=== PATIENT | male | born 1975 | race Caucasian/White ===

== ENCOUNTER 2020-11-12 08:16 | Emergency (ER) | payer OTHER, SELFPAY ==
[2020-11-12] VITALS (31 sets, daily range): BP systolic 102–153; BP diastolic 67–98; PULSE 52–86; RESP 8–23; TEMP 36.4; O2SAT 92–100
--- NOTE | ~2020-11-12 | XR_ITS ---
EXAMINATION: XR chest 2V DATE: 11/12/2020 08:52 INDICATION: Chest pain and shortness of breath TECHNIQUE: PA and lateral views of the chest were obtained. COMPARISON: None FINDINGS: The lungs are clear with no focal airspace opacities, pulmonary edema, pleural effusion or pneumothor ax. Cardiomegaly. Mild thoracic spondylosis. IMPRESSION: 1. No acute cardiopulmonary disease. Reviewed, dictated and finalized at location A.
--- NOTE | 2020-11-12 08:18 | ECG_ITS ---
Measurements Intervals [place] Rate: 63 P: 34 NV: 171 QRS: 12 QRSD: 85 T: 1 QT: 382 QTc: 393 Interpretive Statements SINUS RHYTHM INCOMPLETE RIGHT BUNDLE BRANCH BLOCK BORDERLINE ST-T WAVE ABNORMALITY- INFERIOR LEADS BASELINE WANDER- V4-V6 BORDERLINE ECG Electronically Signed On 11-12-2020 8:30:58 CDT by Syd Gutierrez D.O.
[2020-11-12 08:40] LABS: Basophils Absolute Auto 0.1 K/mm3 (0.0-0.1); Basophils Percent Auto 0.9 % (0.2-1.2); Eosinophils Absolute Auto 0.2 K/mm3 (0-0.3); Eosinophils Percent Auto 3.1 % (0-4.4); Hematocrit 44.6 % (42.0-52.0); Hemoglobin 15.5 g/dL (14.0-18.0); Immature Granulocyte Absolute 0.04 K/mm3 (0.00-0.031); Immature Granulocyte Percent A 0.7 % (0-0.5); Lymphocytes Absolute Auto 1.94 K/mm3 (0.9-3.2); Lymphocytes Percent Auto 34.9 % (18.3-44.2); Mean Corpuscular HGB Conc 34.8 g/dl (32-36); Mean Corpuscular Hemoglobin 31.7 pg (26-34); Mean Corpuscular Volume 91.2 fl (80-100); Mean Platelet Volume 9.4 fl (7.4-10.4); Monocytes Absolute Auto 0.5 K/mm3 (0.1-0.6); Monocytes Percent Auto 9.5 % (2.6-8.5); Neutrophils Absolute Auto 2.8 K/mm3 (1.3-6.7); Neutrophils Percent Auto 50.9 % (45.5-73.1); Platelet Count Result 236 k/mm3 (150-375); Red Blood Count 4.89 M/mm3 (4.6-6.20); Red Cell Distribution Width 11.9 % (11.5-14.5); White Blood Count 5.6 K/mm3 (4.5-10.0)
[2020-11-12] MEDS: ASPIRIN 81 MG CHEWABLE TABLET 324 MG PO (08:50)
--- NOTE | 2020-11-12 08:50 | PC.NURSE ---
Pt in xray at this time.
[2020-11-12 08:55] LABS: INR 0.9; Prothrombin Time 12.4 Seconds (11.1-14.7)
[2020-11-12 08:56] LABS: Partial Thromboplastin Time 26.3 SECONDS (22.3-36.8)
[2020-11-12 08:58] LABS: Anion Gap 7 mmol/L (8-16); Blood Urea Nitrogen 16 mg/dL (9-20); Calcium 9.1 mg/dL (8.4-10.2); Carbon Dioxide 24 mmol/L (22-30); Chloride 108 mmol/L (98-107); Estimated Glomerular Filt Rate > 60; Glucose 109 mg/dL (75-110); Sodium 139 mmol/L (137-145)
[2020-11-12 09:27] LABS: Troponin I < 0.012 ng/mL (0.000-0.034)
--- NOTE | 2020-11-12 09:40 | PC.NURSE ---
JUAN PABLO pinzon at bedside.
--- NOTE | 2020-11-12 09:42 | ED.CHESTPAIN ---
HPI - Chest Pain General Chief Complaint: Chest Pain Stated Complaint: chest pain, sob Time Seen by Provider: 11/12/20 09:12 Source: patient Mode of arrival: ambulatory Limitations: no limitations History of Present Illness HPI narrative: This is a 45 year old male that presents to the ER for chest pain which started last night. Reports he was sitting at home and started get some sharp pains on the left side of his chest. Reports today while he was sitting at work he started to feel lightheaded, have sharp pains on the left side of his chest and he felt short of breath. Reports he also felt tingling in his hands and around his chest. Denies fever, cough, weakness, numbness or lower extremity edema. Related Data Home Medications Medication Instructions Recorded Confirmed No Home Medications 11/12/20 11/12/20 Allergies Allergy/AdvReac Type Severity Reaction Status Date / Time No Known Allergies Allergy Verified 11/12/20 08:54 Review of Systems Review of Systems: Narrative: CONSTITUTIONAL: Denies fever CARDIOVASCULAR: Reports chest pain. Denies edema. RESPIRATORY: Reports dyspnea. Denies cough. NEUROLOGIC: Denies numbness, or weakness. All systems reviewed & are unremarkable except as noted in HPI and below PMFSH Past Medical History Medical History (Updated 11/12/20 @ 11:55 by Jordyn Dawson PA-C) No active medical problems Social History Social History (Updated 11/12/20 @ 09:47 by Jordyn Dawson PA-C) Smoking status: Current every day smoker Tobacco type: e-cigarettes/vaping Substance use: never Gender identity (if verbalized by the patient): Male Exam Narrative: Exam Narrative: GENERAL: Well-appearing, well-nourished, and in no acute distress. HEAD: Normocephalic, atraumatic. EYES: PERRLA and EOMI. ENT: Nares clear, no rhinorrhea or epistaxis. Mucous membranes moist. Oropharynx without tonsillar hypertrophy exudate or other lesions. Bilateral TMs pearly mendez non-bulging NECK: Supple. No adenopathy or masses. CHEST: Clear to auscultation. No respiratory distress. No wheezes rales or rhonchi HEART: Regular rate and rhythm. No murmur heard. Normal peripheral pulses. EXTREMITIES: Normal range of motion. No edema. SKIN: Warm, dry, no rash. NEURO: No focal deficits. Alert and oriented x3. CN II-XII grossly intact PSYCH: Normal mood and affect Course Vital Signs Vital signs: Vital Signs Temperature 97.5 F L 11/12/20 08:29 Pulse Rate 60 11/12/20 08:29 Respiratory Rate 19 11/12/20 08:29 Blood Pressure 141/96 H 11/12/20 08:29 Pulse Oximetry 100 11/12/20 08:29 Temperature 97.5 F L 11/12/20 08:29 Pulse Rate 67 11/12/20 11:31 Respiratory Rate 20 11/12/20 11:31 Blood Pressure 139/91 H 11/12/20 11:30 Pulse Oximetry 97 11/12/20 11:31 MDM - Chest Pain MDM Narrative Medical decision making narrative: Patient presents the emergency department for episode of chest pain last night and this morning. Symptoms are atypical. Do see him more consistent with possible an anxiety component. His vitals are stable. CBC and metabolic panel without concerning findings. D-dimer is not elevated. EKG with nonspecific ST changes, baseline and 3-hour troponin are negative. Chest x-ray without acute cardiopulmonary findings. His heart score is a 2. Patient and family updated on case findings. He is stable and felt appropriate for further outpatient evaluation. He was given warnings to return to the ER Lab Data Attestation: I reviewed the patient's lab results. Result diagrams: 11/12/20 08:27 11/12/20 08:27 Labs: Lab Results 11/12/20 11/12/20 11/12/20 Range/Units 08:26 08:27 08:27 WBC 5.6 (4.5-10.0) K/mm3 RBC 4.89 (4.6-6.20) M/mm3 Hgb 15.5 (14.0-18.0) g/dL Hct 44.6 (42.0-52.0) % MCV 91.2 (80-100) fl MCH 31.7 (26-34) pg MCHC 34.8 (32-36) g/dl RDW 11.9 (11.5-14.5) % Plt Count 236 (150-375) k/mm3
[2020-11-12 10:09] LABS: D Dimer 0.27 ug/mL (<0.48)
[2020-11-12 10:20] LABS: NT Pro B Type Natriuretic Pept 15 PG/ML (5-100)
[2020-11-12 11:51] LABS: Troponin I < 0.012 ng/mL (0.000-0.034)
--- NOTE | 2020-11-12 12:02 | PC.NURSE ---
JUAN PABLO pinzon at bedside for pt results.
== END 2020-11-12 12:07 | disposition home or self-care (01) ==
PROVIDERS: Physician Assistant; Emergency Provider Emergency Medicine; PCP Family Medicine
DX: R07.89 Other chest pain (principal); R06.02 Shortness of breath
CPT/HCPCS: 36415; 71046; 80048; 83880; 84484; 85025; 85380; 85610; 85730; 93005; 99284; A9270